=== PATIENT | female | born 1980 | race Caucasian/White ===

== ENCOUNTER 2017-09-25 19:12 | Emergency (ER) | payer OTHER ==
[~2017-09-25] VITALS: Ht 157.5 cm; Wt 55.0 kg
[~2017-09-25 19:12] MED LIST: COMBIVENT RESPIM4 GM IH; KLONOPIN0.5 M1 PO; MEDROL DOSEPAK4 MG PO; MIRALAX255 GM PO; MOTRIN600 MG PO; NAPROSYN500 MG PO; NOHOMEMEDS; OXYCODONE HCL10 MG PO; OXYCODONE HCL5 MG PO; PRILOSEC40 MG PO; REMERON15 M2 PO; SUMATRIPTAN SUC25 MG PO; VALIUM5 MG PO; VENTOLIN HFA18 GM IH; VISTARIL25 MG PO
[2017-09-25 19:54] LABS: APPEARANCE SL.HAZY ((CLEAR)); BILIRUBIN MODERATE; BLOOD SMALL; COLOR AMBER ((YELLOW)); GLUCOSE (STRIP) NEGATIVE; KETONES NEGATIVE; LEUKOCYTES SMALL; NITRITE NEGATIVE; PROTEIN (STRIP) 100; SPECIFIC GRAVITY 1.027 (1.000-1.030)
[2017-09-25 20:20] LABS: BACTERIA NONE SEEN /HPF; EPITHELIAL CELLS 1+ /HPF; MUCUS 3+ /LPF; RED BLOOD CELLS 15-20 /HPF (0-5); UCUL ADDED? NO; WHITE BLOOD CELLS 0-5 /HPF (0-5)
[2017-09-25 20:49] LABS: ICTOTEST POSITIVE
[2017-09-25 21:10] VITALS: BP 99/69
== END 2017-09-25 21:07 | disposition left against medical advice (07) ==
LOC: EME 19:12
DX: R50.9 Fever, unspecified (principal); R82.99 Other abnormal findings in urine; R07.0 Pain in throat; M25.50 Pain in unspecified joint; Z53.21 Procedure and treatment not carried out due to patient leaving prior to being seen by health care provider
CPT/HCPCS: 80053; 81003; 84702; 85027

== ENCOUNTER 2017-10-28 23:37 | Emergency (ER) | payer OTHER ==
[~2017-10-28] VITALS: Ht 160 cm; Wt 57.3 kg
[2017-10-29 01:11] LABS: HEMATOCRIT 32.2 % (36.0-46.0); MCH 31.7 PG (29.0-34.0); MCHC 34.2 G/DL (30.0-36.0); MCV 92.8 FL (83-99); PLATELET COUNT 222 K/uL (156-360); RBC DIS.WIDTH-CV 14.7 % (11.8-14.6); RBC DIS.WIDTH-SD 49.3 % (39-53); RED BLOOD COUNT 3.47 M/uL (3.80-5.20); WHITE BLOOD COUNT 10.6 K/uL (4.1-10.2)
[2017-10-29 01:24] LABS: CHLORIDE 108 mEq/L (99-109); POTASSIUM 4.1 mEq/L (3.7-5.4); SODIUM 136 mEq/L (136-147)
[2017-10-29 01:26] LABS: GLUCOSE 92 mg/dL (70-99)
[2017-10-29 01:29] LABS: CREATININE 0.8 mg/dL (0.6-1.3); GFR ESTIMATE (CALCULATED) > 59 mL/min/
[2017-10-29 01:30] LABS: UREA NITROGEN (BUN) 9 mg/dL (9-23)
[2017-10-29] MEDS ORDERED: CLINDAMYCIN HC150 MG PO (03:16)
[2017-10-29] MEDS ORDERED: VALACYCLOVIR1000 MG PO (03:16)
[2017-10-29] MEDS ORDERED: DIFLUCAN150 MG PO (03:16)
[2017-10-29 04:02] VITALS: BP 149/91
[2017-10-29 08:59] LABS: SOURCE SWAB
== END 2017-10-29 04:02 | disposition home or self-care (01) ==
LOC: EME 23:37
PROVIDERS: Physician Assistant
PROC: 0H98XZZ Drainage of Buttock Skin, External Approach (ICD-10-PCS; principal; 2017-10-29)
DX: L02.31 Cutaneous abscess of buttock (principal); L03.317 Cellulitis of buttock; B00.9 Herpesviral infection, unspecified; F17.200 Nicotine dependence, unspecified, uncomplicated; Z86.14 Personal history of Methicillin resistant Staphylococcus aureus infection
CPT/HCPCS: 80048; 85027; 87210; 87491; 87591; 99281; 99285; J0696; J1885; J2270

== ENCOUNTER 2017-11-13 00:16 | Emergency (ER) | payer SELFPAY ==
[~2017-11-13] VITALS: Ht 160 cm; Wt 50.1 kg
[~2017-11-13 00:16] MED LIST changes: +CLINDAMYCIN HC150 MG PO; +DIFLUCAN150 MG PO; +VALACYCLOVIR1000 MG PO
[2017-11-13] MEDS ORDERED: KEFLEX500 MG PO (00:54)
[2017-11-13] MEDS ORDERED: BACTRIM,SEPT1 TABLET PO (00:54)
[2017-11-13] MEDS ORDERED: DIFLUCAN150 MG PO (00:54)
[2017-11-13 01:21] VITALS: BP 141/90
== END 2017-11-13 01:22 | disposition home or self-care (01) ==
LOC: EME 00:16
PROC: 0U9MXZZ Drainage of Vulva, External Approach (ICD-10-PCS; principal; 2017-11-13)
DX: N75.0 Cyst of Bartholin's gland (principal); B19.20 Unspecified viral hepatitis C without hepatic coma; F22 Delusional disorders; F20.9 Schizophrenia, unspecified; F42.9 Obsessive-compulsive disorder, unspecified; F32.9 Major depressive disorder, single episode, unspecified; F43.10 Post-traumatic stress disorder, unspecified; F17.200 Nicotine dependence, unspecified, uncomplicated; Z86.19 Personal history of other infectious and parasitic diseases
CPT/HCPCS: 99281; 99284